=== PATIENT | male | born 1985 | race Caucasian/White ===

== ENCOUNTER 2018-05-20 12:15 | Inpatient (IN) | payer MEDICARE, MEDICAID ==
[~2018-05-20] VITALS: Ht 172.7 cm; Wt 76.7 kg
[2018-05-20] MEDS ORDERED: HALOPERIDOL LACTATE 5MG/ML VIAL IM ONE (13:15)
[2018-05-20] MEDS ORDERED: LORAZEPAM 2MG/ML CPJ IV ONE (14:00)
[2018-05-20 14:02] LABS: BASOPHILS % 0.6 % (0.0-2.0); HEMATOCRIT. 24.1 % (42.0-52.0); HEMOGLOBIN. 7.7 g/dL (14.0-18.0); LYMPHOCYTES % 9.5 % (20.0-50.0); MEAN CORPUSCULAR HEMOGLOBIN 30.3 pg (28.0-32.0); MEAN PLATELET VOLUME 8.9 fl (7.4-10.4); MONOCYTES % 4.2 % (2.0-8.0); NEUTROPHILS % 84.7 % (40.0-76.0); PLATELET 196 x1000/uL (130-400); RED BLOOD CELL COUNT 2.54 mill/uL (4.7-6.1); RED CELL DISTRIBUTION WIDTH 17.4 % (11.6-14.6)
[2018-05-20 14:09] LABS: CHLORIDE 118 mEq/L (98-107)
[2018-05-20 14:11] LABS: INR 1.5; PROTHROMBIN TIME 15.1 sec (9.1-11.1)
[2018-05-20] MEDS ORDERED: CALCIUM GLUCONATE 1,000 MG in DEXT 5% WATER 100 ML IV ONE (14:45)
[2018-05-20] MEDS ORDERED: INSULIN REGULAR (HUMULIN R) 300UNITS/3ML IV ONE (14:45)
[2018-05-20] MEDS ORDERED: ALBUTEROL (0.083%) 2.5MG/3ML NEB HHN ONE (14:45)
[2018-05-20] MEDS ORDERED: SODIUM BICARBONATE 8.4% 1 MEQ/ML 50ML SYR IV ONE (14:45)
[2018-05-20] MEDS ORDERED: DEXTROSE 50% WATER 50ML SYRINGE IV ONE ×3 (14:45→18:15)
[2018-05-20 18:34] LABS: TOTAL IRON BINDING CAPACITY 118 ug/dL (250-450)
[2018-05-20 18:55] LABS: FOLIC ACID (FOLATE) SERUM 6.3 ng/mL (>5.38)
[2018-05-20] MEDS ORDERED: PIPERACILLIN/TAZ 3.375G PREMIX 50 ML IV SCH (20:45)
[2018-05-20] MEDS ORDERED: ACETAMINOPHEN 650MG/20.3ML UDC GT PRN (20:45)
[2018-05-20] MEDS ORDERED: ONDANSETRON HCL 4MG/2ML INJ IV PRN (20:45)
[2018-05-20] MEDS ORDERED: ACETAMINOPHEN 650MG SUPP PR PRN (20:45)
[2018-05-20] MEDS ORDERED: GUAIFENESIN 200MG/10ML SUGAR FREE UDC PO PRN (20:45)
[2018-05-20] MEDS ORDERED: HYDROCODONE/ACETAMINOPHEN 5/325MG TABLET PO PRN (20:45)
[2018-05-20] MEDS ORDERED: ACETAMINOPHEN 325MG TABLET PO PRN (20:45)
[2018-05-20] MEDS ORDERED: CLONIDINE 0.1MG TABLET PO PRN (20:45)
[2018-05-20] MEDS ORDERED: IPRATROPIUM/ALBUTEROL 0.5-3(2.5)MG/3ML NEB INH PRN (20:45)
[2018-05-20] MEDS ORDERED: MAGNESIUM/ALUMINUM HYDROXIDE/SIMETHICONE 30ML UDC PO PRN (20:45)
[2018-05-20] MEDS ORDERED: DEXTROSE 50% WATER 50ML SYRINGE IV PRN (21:00)
[2018-05-20] MEDS: BLOOD SUGAR DIAGNOSTIC STRIP TEST SCH (21:00)
[2018-05-20] MEDS ORDERED: CALCIUM ACETATE 667MG CAPSULE PO NR (21:30)
[2018-05-20] MEDS: HYDROCODONE/ACETAMINOPHEN 10/325MG TABLET PO PRN (21:44)
[2018-05-20] MEDS: SODIUM CHLORIDE 0.9% INJ 3ML FLUSH IVF SCH (22:00)
[2018-05-20] MEDS: EPOETIN ALFA 10000UNITS/ML VIAL SUBCUT SCH (23:45)
[2018-05-21] VITALS: BP 0/0
[2018-05-21] MEDS: ALPRAZOLAM 0.25 MG TABLET PO SCH ×3 (01:01→17:13)
[2018-05-21] MEDS: QUETIAPINE FUMARATE 100MG TABLET PO SCH ×2 (01:01→08:14)
[2018-05-21] MEDS ORDERED: GABA-529 PO (04:37)
[2018-05-21] MEDS ORDERED: ALPR-339 PO (04:37)
[2018-05-21] MEDS ORDERED: TRAM150C25 PO (04:37)
[2018-05-21] MEDS ORDERED: QUET100T33 MT (04:37)
[2018-05-21] MEDS ORDERED: ACET-2853 PO (04:37)
[2018-05-21] MEDS ORDERED: ONDA4TAB50 MT (04:37)
[2018-05-21] MEDS ORDERED: HYDR10SY15 PO (04:37)
[2018-05-21] MEDS ORDERED: DIPH25TA23 PO (04:37)
[2018-05-21] MEDS ORDERED: FURO40TA5 PO (04:37)
[2018-05-21] MEDS: SODIUM CHLORIDE 0.9% INJ 3ML FLUSH IVF SCH ×3 (06:00→20:58)
[2018-05-21 07:51] LABS: CHLORIDE 119 mEq/L (98-107)
[2018-05-21] MEDS: INSULIN LISPRO 100 UNITS/ML SUBCUT SCH ×4 (08:00→20:58)
[2018-05-21 08:01] LABS: LDL CHOLESTEROL 11 mg/dL (5-100)
[2018-05-21 08:03] LABS: BASOPHILS % 0.6 % (0.0-2.0); EOSINOPHILS % 0.5 % (0.0-5.0); HEMATOCRIT. 27.1 % (42.0-52.0); HEMOGLOBIN. 8.9 g/dL (14.0-18.0); LYMPHOCYTES % 11.6 % (20.0-50.0); MEAN CORPUSCULAR HEMOGLOBIN 30.8 pg (28.0-32.0); MEAN CORPUSCULAR VOLUME 93.5 fL (80.0-94.0); MONOCYTES % 5.3 % (2.0-8.0); PLATELET 152 x1000/uL (130-400); RED CELL DISTRIBUTION WIDTH 17.5 % (11.6-14.6)
[2018-05-21 08:04] LABS: HDL CHOLESTEROL 28 mg/dL (40-59)
[2018-05-21] MEDS: BLOOD SUGAR DIAGNOSTIC STRIP TEST SCH ×4 (08:07→20:57)
[2018-05-21] MEDS: FOLIC ACID/VITAMIN B COMP W-C TABLET PO SCH (08:14)
[2018-05-21] MEDS: PIPERACILLIN/TAZ 2.25G PREMIX 50 ML IV SCH ×3 (08:15→17:14)
[2018-05-21] MEDS: CALCIUM ACETATE 667MG CAPSULE PO SCH ×3 (08:15→20:50)
[2018-05-21 10:00] VITALS: BP 106/53
[2018-05-21 12:00] VITALS: BP 110/64
[2018-05-21] MEDS: LORAZEPAM 2MG/ML CPJ IV PRN (12:22)
[2018-05-21] MEDS: HYDROCODONE/ACETAMINOPHEN 10/325MG TABLET PO PRN (13:53)
[2018-05-21] MEDS: DIPHENHYDRAMINE 50MG/ML VIAL IV PRN (13:53)
[2018-05-21 16:00] VITALS: BP_DIAS 52
[2018-05-21 17:52] VITALS: BP 96/52
[2018-05-21] MEDS ORDERED: SODIUM POLYSTYRENE SULFONATE 15 G/60 ML BOT PO NR (18:00)
[2018-05-21 20:00] VITALS: BP 144/90
[2018-05-22] VITALS (9 sets, daily range): BP systolic 99–167; BP diastolic 65–110
[2018-05-22] MEDS: LORAZEPAM 2MG/ML CPJ IV PRN ×3 (00:28→16:38)
[2018-05-22] MEDS: PIPERACILLIN/TAZ 2.25G PREMIX 50 ML IV SCH ×3 (00:28→16:00)
[2018-05-22] MEDS: SODIUM CHLORIDE 0.9% INJ 3ML FLUSH IVF SCH ×3 (05:36→22:00)
[2018-05-22] MEDS: BLOOD SUGAR DIAGNOSTIC STRIP TEST SCH ×4 (07:30→21:00)
[2018-05-22 07:53] LABS: BASOPHILS % 0.6 % (0.0-2.0); EOSINOPHILS % 1.4 % (0.0-5.0); LYMPHOCYTES % 10.4 % (20.0-50.0); MEAN CORPUSCULAR HEMOGLOBIN 30.4 pg (28.0-32.0); MEAN CORPUSCULAR VOLUME 92.2 fL (80.0-94.0); MEAN PLATELET VOLUME 8.8 fl (7.4-10.4); NEUTROPHILS % 81.6 % (40.0-76.0); PLATELET 136 x1000/uL (130-400); RED BLOOD CELL COUNT 2.43 mill/uL (4.7-6.1); RED CELL DISTRIBUTION WIDTH 17.6 % (11.6-14.6)
[2018-05-22] MEDS: INSULIN LISPRO 100 UNITS/ML SUBCUT SCH ×4 (08:00→21:00)
[2018-05-22 08:03] LABS: HEMATOCRIT. 22.4 % (42.0-52.0); HEMOGLOBIN. 7.4 g/dL (14.0-18.0)
[2018-05-22 08:19] LABS: PHOSPHORUS 7.4 mg/dL (2.5-4.9)
[2018-05-22] MEDS: HYDROCODONE/ACETAMINOPHEN 10/325MG TABLET PO PRN ×2 (08:36→16:38)
[2018-05-22] MEDS: ALPRAZOLAM 0.25 MG TABLET PO SCH ×2 (08:37→16:38)
[2018-05-22] MEDS: QUETIAPINE FUMARATE 100MG TABLET PO SCH (08:37)
[2018-05-22] MEDS: CALCIUM ACETATE 667MG CAPSULE PO SCH ×3 (08:38→18:00)
[2018-05-22] MEDS: FOLIC ACID/VITAMIN B COMP W-C TABLET PO SCH (08:39)
[2018-05-22] MEDS: DOCUSATE SODIUM 100MG CAPSULE PO PRN (16:38)
[2018-05-22 19:30] LABS: TOTAL IRON BINDING CAPACITY 133 ug/dL (250-450)
[2018-05-23] VITALS (9 sets, daily range): BP systolic 134–178; BP diastolic 76–104
[2018-05-23] MEDS: LORAZEPAM 2MG/ML CPJ IV PRN ×2 (00:21→21:03)
[2018-05-23] MEDS: HYDROCODONE/ACETAMINOPHEN 10/325MG TABLET PO PRN ×3 (04:46→22:07)
[2018-05-23 06:09] LABS: BASOPHILS % 0.4 % (0.0-2.0); EOSINOPHILS % 1.3 % (0.0-5.0); LYMPHOCYTES % 11.7 % (20.0-50.0); MEAN CORPUSCULAR HEMOGLOBIN 30.5 pg (28.0-32.0); MEAN CORPUSCULAR VOLUME 91.7 fL (80.0-94.0); MEAN PLATELET VOLUME 8.5 fl (7.4-10.4); NEUTROPHILS % 79.6 % (40.0-76.0); PLATELET 141 x1000/uL (130-400); RED BLOOD CELL COUNT 2.62 mill/uL (4.7-6.1); RED CELL DISTRIBUTION WIDTH 17.3 % (11.6-14.6)
[2018-05-23] MEDS: SODIUM CHLORIDE 0.9% INJ 3ML FLUSH IVF SCH ×3 (06:15→21:04)
[2018-05-23 06:30] LABS: PHOSPHORUS 6.2 mg/dL (2.5-4.9)
[2018-05-23] MEDS: BLOOD SUGAR DIAGNOSTIC STRIP TEST SCH ×4 (07:30→20:04)
[2018-05-23] MEDS: PIPERACILLIN/TAZ 2.25G PREMIX 50 ML IV SCH ×4 (08:00→23:17)
[2018-05-23] MEDS: INSULIN LISPRO 100 UNITS/ML SUBCUT SCH ×4 (08:00→20:04)
[2018-05-23] MEDS: DIPHENHYDRAMINE 50MG/ML VIAL IV PRN (09:53)
[2018-05-23] MEDS: CALCIUM ACETATE 667MG CAPSULE PO SCH ×3 (09:53→19:15)
[2018-05-23] MEDS: FOLIC ACID/VITAMIN B COMP W-C TABLET PO SCH (09:53)
[2018-05-23] MEDS: QUETIAPINE FUMARATE 100MG TABLET PO SCH (09:53)
[2018-05-23] MEDS: ALPRAZOLAM 0.25 MG TABLET PO SCH ×2 (09:53→19:15)
[2018-05-23] MEDS: DOCUSATE SODIUM 100MG CAPSULE PO PRN (09:53)
[2018-05-23] MEDS ORDERED: DIPHENOXYLATE/ATROPINE 2.5/0.025MG TABLET PO NR (12:00)
[2018-05-23] MEDS: EPOETIN ALFA 10000UNITS/ML VIAL SUBCUT SCH (21:03)
[2018-05-24] MEDS: LORAZEPAM 2MG/ML CPJ IV PRN (04:23)
[2018-05-24] MEDS: HYDROCODONE/ACETAMINOPHEN 10/325MG TABLET PO PRN ×3 (04:35→21:06)
[2018-05-24] MEDS: SODIUM CHLORIDE 0.9% INJ 3ML FLUSH IVF SCH ×3 (06:00→21:07)
[2018-05-24 06:57] VITALS: BP 158/59
[2018-05-24 08:00] VITALS: BP 116/24
[2018-05-24] MEDS: BLOOD SUGAR DIAGNOSTIC STRIP TEST SCH ×4 (08:00→21:00)
[2018-05-24] MEDS: INSULIN LISPRO 100 UNITS/ML SUBCUT SCH ×4 (08:00→21:00)
[2018-05-24] MEDS: PIPERACILLIN/TAZ 2.25G PREMIX 50 ML IV SCH ×2 (08:33→16:00)
[2018-05-24] MEDS: QUETIAPINE FUMARATE 100MG TABLET PO SCH (08:34)
[2018-05-24] MEDS: CALCIUM ACETATE 667MG CAPSULE PO SCH ×3 (08:34→18:31)
[2018-05-24] MEDS: FOLIC ACID/VITAMIN B COMP W-C TABLET PO SCH (08:34)
[2018-05-24] MEDS: ALPRAZOLAM 0.25 MG TABLET PO SCH ×2 (08:34→18:31)
[2018-05-24 12:00] VITALS: BP 116/47
[2018-05-24 16:00] VITALS: BP 154/103
[2018-05-24 18:00] VITALS: BP 177/82
[2018-05-24 21:02] VITALS: BP 150/108
[2018-05-24] MEDS: DIPHENHYDRAMINE 50MG/ML VIAL IV PRN (21:06)
[2018-05-25] VITALS (10 sets, daily range): BP systolic 114–180; BP diastolic 80–115
[2018-05-25] MEDS: PIPERACILLIN/TAZ 2.25G PREMIX 50 ML IV SCH ×3 (00:02→18:20)
[2018-05-25] MEDS: ALPRAZOLAM 0.25 MG TABLET PO SCH ×2 (01:39→16:38)
[2018-05-25] MEDS: DIPHENHYDRAMINE 50MG/ML VIAL IV PRN ×2 (04:27→20:07)
[2018-05-25] MEDS: SODIUM CHLORIDE 0.9% INJ 3ML FLUSH IVF SCH ×3 (06:00→22:00)
[2018-05-25 06:31] LABS: BASOPHILS % 0.8 % (0.0-2.0); EOSINOPHILS % 1.8 % (0.0-5.0); HEMATOCRIT. 24.4 % (42.0-52.0); HEMOGLOBIN. 7.9 g/dL (14.0-18.0); LYMPHOCYTES % 14.7 % (20.0-50.0); MEAN CORPUSCULAR HEMOGLOBIN 30.1 pg (28.0-32.0); MEAN PLATELET VOLUME 8.8 fl (7.4-10.4); MONOCYTES % 5.7 % (2.0-8.0); PLATELET 123 x1000/uL (130-400); RED BLOOD CELL COUNT 2.62 mill/uL (4.7-6.1); RED CELL DISTRIBUTION WIDTH 17.2 % (11.6-14.6)
[2018-05-25 07:15] LABS: PHOSPHORUS 6.2 mg/dL (2.5-4.9)
[2018-05-25] MEDS: BLOOD SUGAR DIAGNOSTIC STRIP TEST SCH ×4 (07:59→21:00)
[2018-05-25] MEDS: INSULIN LISPRO 100 UNITS/ML SUBCUT SCH ×4 (08:00→21:00)
[2018-05-25] MEDS: FOLIC ACID/VITAMIN B COMP W-C TABLET PO SCH (09:38)
[2018-05-25] MEDS: CALCIUM ACETATE 667MG CAPSULE PO SCH ×3 (09:38→18:20)
[2018-05-25] MEDS: QUETIAPINE FUMARATE 100MG TABLET PO SCH (09:38)
[2018-05-25] MEDS ORDERED: SODIUM POLYSTYRENE SULFONATE 15 G/60 ML BOT PO SCH (13:30)
[2018-05-25 17:03] LABS: BASOPHILS % 0.2 % (0.0-2.0); EOSINOPHILS % 0.2 % (0.0-5.0); LYMPHOCYTES % 9.3 % (20.0-50.0); MEAN CORPUSCULAR HEMOGLOBIN 30.2 pg (28.0-32.0); MEAN CORPUSCULAR VOLUME 91.9 fL (80.0-94.0); MEAN PLATELET VOLUME 8.6 fl (7.4-10.4); NEUTROPHILS % 85.3 % (40.0-76.0); PLATELET 96 x1000/uL (130-400); RED BLOOD CELL COUNT 1.91 mill/uL (4.7-6.1); RED CELL DISTRIBUTION WIDTH 16.8 % (11.6-14.6)
[2018-05-25 17:11] LABS: HEMATOCRIT. 17.6 % (42.0-52.0); HEMOGLOBIN. 5.8 g/dL (14.0-18.0)
[2018-05-25] MEDS: HYDROCODONE/ACETAMINOPHEN 10/325MG TABLET PO PRN (19:47)
[2018-05-26 01:09] VITALS: BP 186/107
[2018-05-26] MEDS: DIPHENHYDRAMINE 50MG/ML VIAL IV PRN ×4 (01:42→14:10)
[2018-05-26] MEDS: EPOETIN ALFA 10000UNITS/ML VIAL SUBCUT SCH (01:43)
[2018-05-26 02:12] VITALS: BP 181/113
[2018-05-26] MEDS: SODIUM CHLORIDE 0.9% INJ 3ML FLUSH IVF SCH ×2 (05:23→13:09)
[2018-05-26] MEDS: BLOOD SUGAR DIAGNOSTIC STRIP TEST SCH ×3 (07:30→17:33)
[2018-05-26] MEDS: INSULIN LISPRO 100 UNITS/ML SUBCUT SCH ×3 (08:00→17:33)
[2018-05-26 08:33] LABS: BASOPHILS % 0.4 % (0.0-2.0); EOSINOPHILS % 1.5 % (0.0-5.0); HEMATOCRIT. 26.2 % (42.0-52.0); LYMPHOCYTES % 15.9 % (20.0-50.0); MEAN CORPUSCULAR HEMOGLOBIN 30.6 pg (28.0-32.0); MEAN CORPUSCULAR VOLUME 92.2 fL (80.0-94.0); MEAN PLATELET VOLUME 8.6 fl (7.4-10.4); MONOCYTES % 6.1 % (2.0-8.0); NEUTROPHILS % 76.1 % (40.0-76.0); PLATELET 110 x1000/uL (130-400); RED BLOOD CELL COUNT 2.84 mill/uL (4.7-6.1); RED CELL DISTRIBUTION WIDTH 16.1 % (11.6-14.6)
[2018-05-26 08:44] LABS: HEMOGLOBIN. 8.7 g/dL (14.0-18.0)
[2018-05-26 08:54] LABS: PHOSPHORUS 6.5 mg/dL (2.5-4.9)
[2018-05-26] MEDS: FOLIC ACID/VITAMIN B COMP W-C TABLET PO SCH (08:56)
[2018-05-26] MEDS: CALCIUM ACETATE 667MG CAPSULE PO SCH ×3 (08:56→18:00)
[2018-05-26] MEDS: QUETIAPINE FUMARATE 100MG TABLET PO SCH (08:56)
[2018-05-26] MEDS: PIPERACILLIN/TAZ 2.25G PREMIX 50 ML IV SCH ×3 (08:56→16:51)
[2018-05-26 09:19] LABS: CHLORIDE 108 mEq/L (98-107)
[2018-05-26 11:00] VITALS: BP 189/113
[2018-05-26] MEDS ORDERED: SODIUM POLYSTYRENE SULFONATE 15 G/60 ML BOT PO ONE (11:15)
[2018-05-26] MEDS ORDERED: SODIUM POLYSTYRENE SULFONATE 15 G/60 ML BOT PO NR (11:15)
[2018-05-26] MEDS: HYDRALAZINE 20MG/ML VIAL IV PRN ×2 (13:59→17:07)
[2018-05-26] MEDS ORDERED: CLONIDINE HCL 0.3MG/24HR PATCH TD NR (15:00)
[2018-05-26 16:00] VITALS: BP 189/114
[2018-05-26 17:35] VITALS: BP 161/99
[2018-05-26 18:00] VITALS: BP 161/99
== END 2018-05-26 18:45 | disposition home or self-care (01) | DRG 981 ==
LOC: ER 13:56 → 5EST 14:32 → EDBEDREQ 14:37 → EDBEDREQSVC 14:37 → ENRESERV 20:25 → 5EST 22:55
PROVIDERS: ADMIT Family Medicine; ATTEND Family Medicine
PROC: 5A1D70Z Performance of Urinary Filtration, Intermittent, Less than 6 Hours Per Day (ICD-10-PCS; 2018-05-20)
PROC: 5A1D70Z Performance of Urinary Filtration, Intermittent, Less than 6 Hours Per Day (ICD-10-PCS; 2018-05-21)
PROC: 0KBR0ZZ Excision of Left Upper Leg Muscle, Open Approach (ICD-10-PCS; principal; 2018-05-23)
PROC: 5A1D70Z Performance of Urinary Filtration, Intermittent, Less than 6 Hours Per Day (ICD-10-PCS; 2018-05-24)
PROC: 30233N1 Transfusion of Nonautologous Red Blood Cells into Peripheral Vein, Percutaneous Approach (ICD-10-PCS; 2018-05-25)
PROC: 5A1D70Z Performance of Urinary Filtration, Intermittent, Less than 6 Hours Per Day (ICD-10-PCS; 2018-05-25)
DX: E87.5 Hyperkalemia (principal); E43 Unspecified severe protein-calorie malnutrition; N18.6 End stage renal disease; I50.33 Acute on chronic diastolic (congestive) heart failure; I13.2 Hypertensive heart and chronic kidney disease with heart failure and with stage 5 chronic kidney disease, or end stage renal disease; N17.9 Acute kidney failure, unspecified; J98.11 Atelectasis; N25.81 Secondary hyperparathyroidism of renal origin; E10.21 Type 1 diabetes mellitus with diabetic nephropathy; E10.22 Type 1 diabetes mellitus with diabetic chronic kidney disease; F41.9 Anxiety disorder, unspecified; K31.84 Gastroparesis; D63.1 Anemia in chronic kidney disease; E10.43 Type 1 diabetes mellitus with diabetic autonomic (poly)neuropathy; F17.210 Nicotine dependence, cigarettes, uncomplicated; S70.922A Unspecified superficial injury of left thigh, initial encounter; X58.XXXA Exposure to other specified factors, initial encounter; Z82.49 Family history of ischemic heart disease and other diseases of the circulatory system; Z88.1 Allergy status to other antibiotic agents; Z91.15 Patient's noncompliance with renal dialysis; Z83.3 Family history of diabetes mellitus; Z99.2 Dependence on renal dialysis; Z99.3 Dependence on wheelchair; Z88.8 Allergy status to other drugs, medicaments and biological substances; Z68.25 Body mass index [BMI] 25.0-25.9, adult; Y93.89 Activity, other specified; Y92.89 Other specified places as the place of occurrence of the external cause; Y99.8 Other external cause status
CPT/HCPCS: 36415; 71045; 80048; 80061; 82270; 82607; 82728; 82746; 82962; 83540; 83550; 83735; 84100; 84134; 86850; 86900; 86920; 93005; 93306; 96365; 96375; 96376; 97116; 97162; 97530; 99291; J0360; J0610; J0885; J1200; J1815; J2060; J2405; J2543; J3490; J7050; J7060; P9016

== ENCOUNTER 2018-07-11 01:50 | Inpatient (IN) | payer MEDICARE, MEDICAID ==
[~2018-07-11] VITALS: Ht 162.6 cm; Wt 84.4 kg
[~2018-07-11 01:50] MED LIST: ACET-2853 PO; ALPR-339 PO; DIPH25TA23 PO; FURO40TA5 PO; GABA-529 PO; HYDR10SY15 PO; ONDA4TAB50 MT; QUET100T33 MT; TRAM150C25 PO
[2018-07-11 02:00] VITALS: BP 161/77
[2018-07-11 04:49] LABS: CHLORIDE 108 mEq/L (98-107)
[2018-07-11 04:51] LABS: BASOPHILS % 0.3 % (0.0-2.0); EOSINOPHILS % 0.2 % (0.0-5.0); LYMPHOCYTES % 9.8 % (20.0-50.0); MEAN CORPUSCULAR HEMOGLOBIN 30.5 pg (28.0-32.0); MONOCYTES % 9.1 % (2.0-8.0); NEUTROPHILS % 80.6 % (40.0-76.0); PLATELET 185 x1000/uL (130-400); RED BLOOD CELL COUNT 2.24 mill/uL (4.7-6.1); RED CELL DISTRIBUTION WIDTH 17.2 % (11.6-14.6)
[2018-07-11 04:54] LABS: HEMATOCRIT. 20.8 % (42.0-52.0); HEMOGLOBIN. 6.8 g/dL (14.0-18.0)
[2018-07-11 04:57] LABS: INR 1.3; PARTIAL THROMBOPLASTIN TIME 28.9 sec (23.4-31.0); PROTHROMBIN TIME 13.3 sec (9.1-11.1)
[2018-07-11] MEDS ORDERED: PIPERACILLIN/TAZOBACTAM 3.375GM/50ML PREMIX IV ONE (06:00)
[2018-07-11] MEDS ORDERED: MORPHINE SULFATE 4 MG/ML CPJ (NOT FOR IM USE) IV ONE (06:15)
[2018-07-11] MEDS ORDERED: PIPERACILLIN/TAZ 3.375G PREMIX 50 ML IV NR (06:15)
[2018-07-11] MEDS ORDERED: ACETAMINOPHEN 325MG TABLET PO PRN (08:45)
[2018-07-11] MEDS ORDERED: CEFTRIAXONE 1 G PREMIX 50 ML IV NR (10:45)
[2018-07-11] MEDS ORDERED: AZITHROMYCIN 500 MG TABLET PO NR (10:45)
[2018-07-11] MEDS: HYDROCODONE/ACETAMINOPHEN 5/325MG TABLET PO PRN ×2 (11:34→23:32)
[2018-07-11] MEDS ORDERED: IPRATROPIUM/ALBUTEROL 0.5-3(2.5)MG/3ML NEB HHN PRN (13:15)
[2018-07-11] MEDS ORDERED: SODIUM BICARBONATE 4% (2.4MEQ) 5ML VIAL IV ONE (13:33)
[2018-07-11] MEDS ORDERED: LIDOCAINE HCL 1% 20ML VIAL (Pyxis) INJ ONE (13:34)
[2018-07-11 21:28] LABS: BASOPHILS % 0.5 % (0.0-2.0); EOSINOPHILS % 0.3 % (0.0-5.0); HEMATOCRIT. 23.9 % (42.0-52.0); LYMPHOCYTES % 12.8 % (20.0-50.0); MEAN CORPUSCULAR VOLUME 92.5 fL (80.0-94.0); MEAN PLATELET VOLUME 8.2 fl (7.4-10.4); MONOCYTES % 8.9 % (2.0-8.0); NEUTROPHILS % 77.5 % (40.0-76.0); PLATELET 164 x1000/uL (130-400); RED BLOOD CELL COUNT 2.58 mill/uL (4.7-6.1); RED CELL DISTRIBUTION WIDTH 16.7 % (11.6-14.6)
[2018-07-11] MEDS: ALPRAZOLAM 0.5 MG TABLET PO PRN (23:08)
[2018-07-12] VITALS (7 sets, daily range): BP systolic 125–161; BP diastolic 48–80
[2018-07-12] MEDS: ALPRAZOLAM 0.5 MG TABLET PO PRN ×2 (06:31→11:41)
[2018-07-12] MEDS: HYDROCODONE/ACETAMINOPHEN 5/325MG TABLET PO PRN ×2 (06:31→17:30)
[2018-07-12 07:16] LABS: PHOSPHORUS 6.1 mg/dL (2.5-4.9)
[2018-07-12 08:17] LABS: BASOPHILS % 0.5 % (0.0-2.0); EOSINOPHILS % 0.6 % (0.0-5.0); HEMATOCRIT. 22.1 % (42.0-52.0); HEMOGLOBIN. 7.2 g/dL (14.0-18.0); LYMPHOCYTES % 11.3 % (20.0-50.0); MEAN CORPUSCULAR HEMOGLOBIN 30.6 pg (28.0-32.0); MEAN CORPUSCULAR VOLUME 93.7 fL (80.0-94.0); MONOCYTES % 7.9 % (2.0-8.0); NEUTROPHILS % 79.7 % (40.0-76.0); PLATELET 183 x1000/uL (130-400); RED BLOOD CELL COUNT 2.36 mill/uL (4.7-6.1); RED CELL DISTRIBUTION WIDTH 17.4 % (11.6-14.6)
[2018-07-12] MEDS ORDERED: CEFTRIAXONE 1 G PREMIX 50 ML IV SCH (10:00)
[2018-07-12] MEDS: AZITHROMYCIN 500 MG TABLET PO SCH (11:41)
[2018-07-12] MEDS: CEFTRIAXONE 1,000 MG in DEXTROSE 5% WATER 50 ML IV SCH (11:41)
[2018-07-12] MEDS ORDERED: SODIUM BICARBONATE 4% (2.4MEQ) 5ML VIAL IV ONE (14:13)
[2018-07-12] MEDS ORDERED: LIDOCAINE HCL 1% 20ML VIAL (Pyxis) INJ ONE (14:13)
[2018-07-12 19:53] LABS: HEMATOCRIT 21.9 % (42.0-52.0); HEMOGLOBIN 7.2 g/dL (14.0-18.0); MEAN CORPUSCULAR HEMOGLOBIN 30.8 pg (28.0-32.0); MEAN CORPUSCULAR VOLUME 93.9 fL (80.0-94.0); PLATELET 187 x1000/uL (130-400); RED BLOOD CELL COUNT 2.34 mill/uL (4.7-6.1); RED CELL DISTRIBUTION WIDTH 17.8 % (11.6-14.6)
[2018-07-12] MEDS: LORAZEPAM 2MG/ML CPJ IV PRN (23:07)
[2018-07-13 00:40] VITALS: BP 183/98
[2018-07-13] MEDS: HYDROCODONE/ACETAMINOPHEN 5/325MG TABLET PO PRN ×4 (03:35→20:41)
[2018-07-13 04:00] VITALS: BP 167/97
[2018-07-13 06:29] LABS: PHOSPHORUS 5.1 mg/dL (2.5-4.9)
[2018-07-13 06:31] LABS: T4 FREE 0.87 ng/dL (0.76-1.46)
[2018-07-13 06:49] LABS: BASOPHILS % 0.4 % (0.0-2.0); EOSINOPHILS % 0.5 % (0.0-5.0); HEMATOCRIT. 22.3 % (42.0-52.0); HEMOGLOBIN. 7.3 g/dL (14.0-18.0); LYMPHOCYTES % 10.7 % (20.0-50.0); MEAN CORPUSCULAR HEMOGLOBIN 30.8 pg (28.0-32.0); MEAN CORPUSCULAR VOLUME 93.5 fL (80.0-94.0); MEAN PLATELET VOLUME 7.7 fl (7.4-10.4); MONOCYTES % 6.7 % (2.0-8.0); NEUTROPHILS % 81.7 % (40.0-76.0); PLATELET 183 x1000/uL (130-400); RED BLOOD CELL COUNT 2.39 mill/uL (4.7-6.1); RED CELL DISTRIBUTION WIDTH 17.4 % (11.6-14.6)
[2018-07-13 08:00] VITALS: BP 175/94
[2018-07-13] MEDS: AZITHROMYCIN 500 MG TABLET PO SCH (10:16)
[2018-07-13] MEDS: CLONIDINE 0.1MG TABLET PO PRN ×2 (10:17→16:02)
[2018-07-13] MEDS: CEFTRIAXONE 1,000 MG in DEXTROSE 5% WATER 50 ML IV SCH (10:17)
[2018-07-13] MEDS: LEVOTHYROXINE SODIUM 50MCG TABLET PO SCH (11:22)
[2018-07-13 12:00] VITALS: BP 161/68
[2018-07-13 13:06] LABS: HIV SCREEN 4G Non Reactive (Non Reactive)
[2018-07-13 16:00] VITALS: BP 171/78
[2018-07-13 20:00] VITALS: BP 159/88
[2018-07-13] MEDS: EPOETIN ALFA 10000UNITS/ML VIAL SUBCUT SCH (20:41)
[2018-07-13] MEDS: LORAZEPAM 2MG/ML CPJ IV PRN (21:07)
[2018-07-14] VITALS: BP 154/88
[2018-07-14] MEDS: HYDROCODONE/ACETAMINOPHEN 5/325MG TABLET PO PRN ×3 (01:32→16:28)
[2018-07-14 04:00] VITALS: BP 155/84
[2018-07-14] MEDS: LEVOTHYROXINE SODIUM 50MCG TABLET PO SCH (06:14)
[2018-07-14 06:49] LABS: BASOPHILS % 0.5 % (0.0-2.0); EOSINOPHILS % 0.4 % (0.0-5.0); HEMATOCRIT. 22.3 % (42.0-52.0); HEMOGLOBIN. 7.1 g/dL (14.0-18.0); MEAN CORPUSCULAR HEMOGLOBIN 30.2 pg (28.0-32.0); MEAN CORPUSCULAR VOLUME 94.7 fL (80.0-94.0); MEAN PLATELET VOLUME 7.8 fl (7.4-10.4); NEUTROPHILS % 83.1 % (40.0-76.0); PLATELET 190 x1000/uL (130-400); RED BLOOD CELL COUNT 2.35 mill/uL (4.7-6.1); RED CELL DISTRIBUTION WIDTH 19.4 % (11.6-14.6)
[2018-07-14 08:00] VITALS: BP 160/75
[2018-07-14] MEDS: AZITHROMYCIN 500 MG TABLET PO SCH (09:17)
[2018-07-14] MEDS: CEFTRIAXONE 1,000 MG in DEXTROSE 5% WATER 50 ML IV SCH (09:18)
[2018-07-14 09:58] LABS: PHOSPHORUS 6.4 mg/dL (2.5-4.9)
[2018-07-14 12:00] VITALS: BP 187/69
[2018-07-14] MEDS: LORAZEPAM 2MG/ML CPJ IV PRN ×2 (12:02→17:48)
[2018-07-14 16:00] VITALS: BP 126/79
[2018-07-14 20:00] VITALS: BP 139/49
[2018-07-15] VITALS: BP 141/77
[2018-07-15 04:00] VITALS: BP 144/89
[2018-07-15] MEDS: LORAZEPAM 2MG/ML CPJ IM PRN ×2 (06:00→12:11)
[2018-07-15] MEDS: LEVOTHYROXINE SODIUM 50MCG TABLET PO SCH (06:00)
[2018-07-15 07:47] LABS: HEMATOCRIT. 28.2 % (42.0-52.0); MEAN CORPUSCULAR HEMOGLOBIN 31.1 pg (28.0-32.0); MEAN PLATELET VOLUME 8.2 fl (7.4-10.4); PLATELET 158 x1000/uL (130-400)
[2018-07-15 08:00] VITALS: BP 144/83
[2018-07-15] MEDS: CEFTRIAXONE 1,000 MG in DEXTROSE 5% WATER 50 ML IV SCH ×2 (09:02→15:07)
[2018-07-15] MEDS: HYDROCODONE/ACETAMINOPHEN 5/325MG TABLET PO PRN ×3 (09:02→21:25)
[2018-07-15] MEDS: AZITHROMYCIN 500 MG TABLET PO SCH (09:02)
[2018-07-15 13:07] LABS: PLATELET ESTIMATE NORMAL
[2018-07-15] MEDS: VANCOMYCIN HCL 1000 MG/20 ML ORAL PO SCH ×2 (18:00→23:04)
[2018-07-15] MEDS: LORAZEPAM 2MG/ML CPJ IV PRN (19:02)
[2018-07-15 20:00] VITALS: BP 151/48
[2018-07-15] MEDS: EPOETIN ALFA 10000UNITS/ML VIAL SUBCUT SCH (23:04)
[2018-07-15] MEDS: ZOLPIDEM TARTRATE 5MG TABLET PO PRN (23:04)
[2018-07-16] VITALS: BP 132/62
[2018-07-16] MEDS: LORAZEPAM 2MG/ML CPJ IV PRN ×3 (01:42→22:58)
[2018-07-16 04:00] VITALS: BP 123/49
[2018-07-16] MEDS: VANCOMYCIN HCL 1000 MG/20 ML ORAL PO SCH ×4 (05:05→23:01)
[2018-07-16] MEDS: ONDANSETRON HCL 4MG/2ML INJ IV PRN ×2 (06:29→16:11)
[2018-07-16] MEDS: LEVOTHYROXINE SODIUM 50MCG TABLET PO SCH ×2 (06:29→06:35)
[2018-07-16 08:00] VITALS: BP 143/74
[2018-07-16 09:39] LABS: HEMATOCRIT. 25.3 % (42.0-52.0); HEMOGLOBIN. 7.9 g/dL (14.0-18.0); MEAN CORPUSCULAR HEMOGLOBIN 30.7 pg (28.0-32.0); MEAN CORPUSCULAR VOLUME 97.8 fL (80.0-94.0); MEAN PLATELET VOLUME 8.1 fl (7.4-10.4); PLATELET 187 x1000/uL (130-400); RED BLOOD CELL COUNT 2.59 mill/uL (4.7-6.1); RED CELL DISTRIBUTION WIDTH 20.8 % (11.6-14.6)
[2018-07-16] MEDS ORDERED: SODIUM POLYSTYRENE SULFONATE 15 G/60 ML BOT PO NR (11:30)
[2018-07-16 12:00] VITALS: BP 145/79
[2018-07-16] MEDS ORDERED: DIPHENHYDRAMINE 25MG CAPSULE PO PRN (13:45)
[2018-07-16] MEDS: ALPRAZOLAM 0.25 MG TABLET PO SCH ×2 (14:09→20:07)
[2018-07-16] MEDS: CEFTRIAXONE 1,000 MG in DEXTROSE 5% WATER 50 ML IV SCH (14:19)
[2018-07-16] MEDS ORDERED: DIATR MEGLU/DIATRIZOATE SOLN 30ML PO SCH (15:30)
[2018-07-16] MEDS ORDERED: LORAZEPAM 2MG/ML CPJ IV NR (15:45)
[2018-07-16 16:00] VITALS: BP 121/52
[2018-07-16] MEDS ORDERED: BISMUTH SUBSALICYLATE 262 MG/15 ML-120ML BOTTLE PO NR (17:00)
[2018-07-16] MEDS ORDERED: BISACODYL 10MG SUPP PR NR (18:30)
[2018-07-16 20:00] VITALS: BP 141/78
[2018-07-16] MEDS: PANTOPRAZOLE SODIUM 40 MG/VIAL IV SCH (21:34)
[2018-07-16] MEDS: METRONIDAZOLE 500 MG PREMIX 100 ML IV SCH (21:35)
[2018-07-16 22:52] LABS: PLATELET ESTIMATE NORMAL
[2018-07-17] VITALS: BP 122/63
[2018-07-17 04:00] VITALS: BP 152/56
[2018-07-17] MEDS: VANCOMYCIN HCL 1000 MG/20 ML ORAL PO SCH ×5 (05:06→22:58)
[2018-07-17] MEDS: LORAZEPAM 2MG/ML CPJ IV PRN ×3 (05:14→20:41)
[2018-07-17] MEDS: LEVOTHYROXINE SODIUM 50MCG TABLET PO SCH (06:35)
[2018-07-17 08:00] VITALS: BP 130/78
[2018-07-17] MEDS: PANTOPRAZOLE SODIUM 40 MG/VIAL IV SCH (09:16)
[2018-07-17] MEDS: ALPRAZOLAM 0.25 MG TABLET PO SCH ×2 (09:16→17:22)
[2018-07-17] MEDS: METRONIDAZOLE 500 MG PREMIX 100 ML IV SCH ×2 (09:16→20:31)
[2018-07-17] MEDS: CEFEPIME 1,000 MG in DEXTROSE 5% WATER 50 ML IV SCH (11:38)
[2018-07-17 11:39] LABS: PHOSPHORUS 5.7 mg/dL (2.5-4.9)
[2018-07-17 12:00] VITALS: BP 190/66
[2018-07-17] MEDS: CLONIDINE 0.1MG TABLET PO PRN (13:43)
[2018-07-17 16:41] LABS: HEMATOCRIT. 25.8 % (42.0-52.0); HEMOGLOBIN. 8.1 g/dL (14.0-18.0); MEAN CORPUSCULAR HEMOGLOBIN 30.9 pg (28.0-32.0); MEAN CORPUSCULAR VOLUME 97.7 fL (80.0-94.0); MEAN PLATELET VOLUME 8.4 fl (7.4-10.4); PLATELET 204 x1000/uL (130-400); RED BLOOD CELL COUNT 2.64 mill/uL (4.7-6.1)
[2018-07-17 18:53] LABS: PLATELET ESTIMATE NORMAL
[2018-07-17 20:00] VITALS: BP 100/53
[2018-07-17 22:05] VITALS: BP 151/67
[2018-07-17] MEDS: ZOLPIDEM TARTRATE 5MG TABLET PO PRN (22:59)
[2018-07-18] MEDS: LORAZEPAM 2MG/ML CPJ IV PRN ×3 (02:22→21:36)
[2018-07-18 04:00] VITALS: BP 120/61
[2018-07-18] MEDS: VANCOMYCIN HCL 1000 MG/20 ML ORAL PO SCH ×3 (05:27→18:00)
[2018-07-18 05:42] LABS: HEMATOCRIT. 24.4 % (42.0-52.0); HEMOGLOBIN. 7.6 g/dL (14.0-18.0); MEAN CORPUSCULAR HEMOGLOBIN 30.3 pg (28.0-32.0); MEAN CORPUSCULAR VOLUME 97.4 fL (80.0-94.0); MEAN PLATELET VOLUME 8.2 fl (7.4-10.4); PLATELET 215 x1000/uL (130-400); RED BLOOD CELL COUNT 2.51 mill/uL (4.7-6.1); RED CELL DISTRIBUTION WIDTH 21.1 % (11.6-14.6)
[2018-07-18 06:06] LABS: PHOSPHORUS 6.2 mg/dL (2.5-4.9)
[2018-07-18 08:00] VITALS: BP 140/101
[2018-07-18] MEDS: ALPRAZOLAM 0.25 MG TABLET PO SCH ×2 (08:45→18:03)
[2018-07-18] MEDS: LEVOTHYROXINE SODIUM 50MCG TABLET PO SCH (08:46)
[2018-07-18] MEDS: PANTOPRAZOLE SODIUM 40 MG/VIAL IV SCH (08:46)
[2018-07-18] MEDS: METRONIDAZOLE 500 MG PREMIX 100 ML IV SCH ×2 (09:00→21:00)
[2018-07-18] MEDS: ONDANSETRON HCL 4MG/2ML INJ IV PRN (11:37)
[2018-07-18] MEDS: CEFEPIME 1,000 MG in DEXTROSE 5% WATER 50 ML IV SCH (11:37)
[2018-07-18 12:00] VITALS: BP 132/63
[2018-07-18] MEDS: CALCIUM ACETATE 667MG CAPSULE PO SCH ×2 (13:10→18:04)
[2018-07-18] MEDS: HYDROCODONE/ACETAMINOPHEN 5/325MG TABLET PO PRN ×2 (13:34→18:04)
[2018-07-18 16:00] VITALS: BP 147/61
[2018-07-18 19:20] LABS: PLATELET ESTIMATE NORMAL
[2018-07-18] MEDS ORDERED: MEROPENEM 500 MG in SODIUM CHLORIDE 0.9% 50 ML IV SCH (19:30)
[2018-07-18 20:00] VITALS: BP 124/49
[2018-07-18] MEDS: EPOETIN ALFA 10000UNITS/ML VIAL SUBCUT SCH (21:36)
[2018-07-19] VITALS: BP 143/53
[2018-07-19] MEDS: HYDROCODONE/ACETAMINOPHEN 5/325MG TABLET PO PRN ×2 (00:31→06:48)
[2018-07-19] MEDS: ZOLPIDEM TARTRATE 5MG TABLET PO PRN (01:08)
[2018-07-19 04:00] VITALS: BP 148/56
[2018-07-19] MEDS: LORAZEPAM 2MG/ML CPJ IV PRN ×2 (04:27→11:03)
[2018-07-19] MEDS: VANCOMYCIN HCL 1000 MG/20 ML ORAL PO SCH ×3 (06:00→12:00)
[2018-07-19 07:08] LABS: HEMATOCRIT. 22.5 % (42.0-52.0); HEMOGLOBIN. 7.1 g/dL (14.0-18.0); MEAN CORPUSCULAR HEMOGLOBIN 31.2 pg (28.0-32.0); MEAN CORPUSCULAR VOLUME 98.8 fL (80.0-94.0); MEAN PLATELET VOLUME 8.5 fl (7.4-10.4); PLATELET 189 x1000/uL (130-400); RED BLOOD CELL COUNT 2.28 mill/uL (4.7-6.1); RED CELL DISTRIBUTION WIDTH 21.2 % (11.6-14.6)
[2018-07-19 08:00] VITALS: BP 164/77
[2018-07-19 08:27] LABS: PHOSPHORUS 6.3 mg/dL (2.5-4.9)
[2018-07-19] MEDS: LEVOTHYROXINE SODIUM 50MCG TABLET PO SCH (08:45)
[2018-07-19] MEDS: ALPRAZOLAM 0.25 MG TABLET PO SCH (08:46)
[2018-07-19] MEDS: CALCIUM ACETATE 667MG CAPSULE PO SCH ×2 (08:46→13:16)
[2018-07-19] MEDS: PANTOPRAZOLE SODIUM 40 MG/VIAL IV SCH (08:46)
[2018-07-19] MEDS: METRONIDAZOLE 500 MG PREMIX 100 ML IV SCH (08:48)
[2018-07-19 12:00] VITALS: BP 161/67
[2018-07-19] MEDS: CLONIDINE 0.1MG TABLET PO PRN (13:43)
[2018-07-19 14:05] LABS: PLATELET ESTIMATE NORMAL
[2018-07-19 16:00] VITALS: BP 147/71
== END 2018-07-19 17:39 | DRG 853 ==
LOC: ER 01:50 → EDBEDREQ 03:11 → 8WST 06:20 → EDBEDREQTM 06:24 → EDBEDREQSVC 06:24 → EDBEDREQ 06:24 → EDBEDREQSVC 07:10 → EDBEDREQTM 07:10 → ENRESERV 21:05 → 7WST 07-17 22:33
PROVIDERS: ADMIT Internal Medicine; ATTEND Internal Medicine
PROC: 30233N1 Transfusion of Nonautologous Red Blood Cells into Peripheral Vein, Percutaneous Approach (ICD-10-PCS; 2018-07-11)
PROC: 5A1D70Z Performance of Urinary Filtration, Intermittent, Less than 6 Hours Per Day (ICD-10-PCS; 2018-07-11)
PROC: 0W9G3ZZ Drainage of Peritoneal Cavity, Percutaneous Approach (ICD-10-PCS; principal; 2018-07-12)
PROC: 0JBQ0ZZ Excision of Right Foot Subcutaneous Tissue and Fascia, Open Approach (ICD-10-PCS; 2018-07-13)
PROC: 5A1D70Z Performance of Urinary Filtration, Intermittent, Less than 6 Hours Per Day (ICD-10-PCS; 2018-07-13)
PROC: B54MZZA Ultrasonography of Right Upper Extremity Veins, Guidance (ICD-10-PCS; 2018-07-15)
PROC: 05HY33Z Insertion of Infusion Device into Upper Vein, Percutaneous Approach (ICD-10-PCS; 2018-07-15)
PROC: 5A1D70Z Performance of Urinary Filtration, Intermittent, Less than 6 Hours Per Day (ICD-10-PCS; 2018-07-16)
PROC: 5A1D70Z Performance of Urinary Filtration, Intermittent, Less than 6 Hours Per Day (ICD-10-PCS; 2018-07-18)
DX: A41.9 Sepsis, unspecified organism (principal); J18.1 Lobar pneumonia, unspecified organism; J96.00 Acute respiratory failure, unspecified whether with hypoxia or hypercapnia; N18.6 End stage renal disease; E43 Unspecified severe protein-calorie malnutrition; I12.0 Hypertensive chronic kidney disease with stage 5 chronic kidney disease or end stage renal disease; J90 Pleural effusion, not elsewhere classified; R18.8 Other ascites; L97.829 Non-pressure chronic ulcer of other part of left lower leg with unspecified severity; L97.819 Non-pressure chronic ulcer of other part of right lower leg with unspecified severity; K56.7 Ileus, unspecified; F41.9 Anxiety disorder, unspecified; Z99.2 Dependence on renal dialysis; D63.8 Anemia in other chronic diseases classified elsewhere; E10.43 Type 1 diabetes mellitus with diabetic autonomic (poly)neuropathy; E10.628 Type 1 diabetes mellitus with other skin complications; E10.22 Type 1 diabetes mellitus with diabetic chronic kidney disease; E10.42 Type 1 diabetes mellitus with diabetic polyneuropathy; E10.51 Type 1 diabetes mellitus with diabetic peripheral angiopathy without gangrene; K31.84 Gastroparesis; K74.60 Unspecified cirrhosis of liver; E03.9 Hypothyroidism, unspecified; E87.5 Hyperkalemia; E87.8 Other disorders of electrolyte and fluid balance, not elsewhere classified; K29.70 Gastritis, unspecified, without bleeding; M53.3 Sacrococcygeal disorders, not elsewhere classified; S31.109A Unspecified open wound of abdominal wall, unspecified quadrant without penetration into peritoneal cavity, initial encounter; S71.102A Unspecified open wound, left thigh, initial encounter; S71.101A Unspecified open wound, right thigh, initial encounter; Z79.4 Long term (current) use of insulin; Z82.49 Family history of ischemic heart disease and other diseases of the circulatory system; Z83.3 Family history of diabetes mellitus; Z89.422 Acquired absence of other left toe(s); Z88.1 Allergy status to other antibiotic agents; Z88.8 Allergy status to other drugs, medicaments and biological substances; Z79.899 Other long term (current) drug therapy; X30.XXXA Exposure to excessive natural heat, initial encounter; Y93.89 Activity, other specified; Y92.89 Other specified places as the place of occurrence of the external cause; Y99.8 Other external cause status; Z68.31 Body mass index [BMI] 31.0-31.9, adult
CPT/HCPCS: 36415; 36569; 49083; 71045; 74018; 74176; 76700; 76937; 80048; 82270; 82550; 82728; 82962; 83036; 83605; 83735; 84100; 84134; 84145; 84439; 84443; 84481; 84484; 85027; 85651; 86140; 86850; 86900; 86920; 87075; 87389; 93005; 93970; 96365; 96375; 99285; A6261; C1725; C1893; C9113; J0692; J0696; J0885; J2060; J2185; J2270; J2405; J2543; J3370; J3490; J7050; J7060; P9016; Q0163